=== PATIENT | male | born 1970 | race African-American/Black ===

== ENCOUNTER 2019-06-02 17:18 | Inpatient (IN) ==
[2019-06-02] MEDS ORDERED: ASPIRIN PO ONE (17:36)
--- NOTE | 2019-06-02 17:43 | PROVIDER DOCUMENTATION ---
HPI-Chest Pain - General Chief Complaint: Chest Pain Stated Complaint: SOB/CHEST PAINS Time Seen by Provider: 06/02/19 17:41 Source: patient Allergies/Adverse Reactions: Patient Allergies Allergy/AdvReac Type Severity Reaction Status Date / Time Iodinated Contrast Media Allergy Severe ANAPHYLAXIS Verified 12/25/15 08:23 Home Medications: Home Medication List Medication Instructions Recorded Confirmed Last Taken Type Oxycodone HCl/Acetaminophen 1 each PO PRN PRN 09/22/18 09/22/18 09/22/18 History [Oxycodone-Acetaminophen 10-325] Albuterol Sulfate Inhaler 2 puff INH Q6H PRN PRN #1 inhaler 01/28/19 Unknown Rx [Ventolin Hfa] Benzonatate 200 mg PO TID #30 cap 01/28/19 Unknown Rx Prednisone 50 mg PO DAILY #5 tab 01/28/19 Unknown Rx - History of Present Illness-CP Nature of Presenting Problem: Patient is a 48 year old black male with history of abdominal hernia complaining of increasing shortness of breath, orthopnea,productive yellow cough, and substernal chest pain for past 1 week. Currently without chest pain. Denies history of CAD, fever, or blood clots. Location: reports: substernal Chest Pain Radiation: reports: no radiation Quality of Pain: reports: aching Onset/Duration: gradual Timing: gone now, intermittent Context/Activities at Onset: reports: light activity Similar Symptoms Previously?: No Recently Seen Here or By Another Healthcare Provider: No Review of Systems - Adult - REVIEW OF SYSTEMS - ADULT Constitutional: denies: chills, fever Eyes: reports: no symptoms reported Ears, Nose, Mouth & Throat: reports: no symptoms reported Cardiovascular: reports: chest pain, orthopnea Respiratory: reports: see HPI, cough, shortness of breath Gastrointestinal: reports: see HPI, other (chronic abdominal wall hernia) Musculoskeletal: reports: no symptoms reported Integumentary: reports: no symptoms reported Neurological: reports: no symptoms reported Psychiatric: reports: no symptoms reported Endocrine: reports: no symptoms reported Hematologic/Lymphatic: reports: no symptoms reported Allergic/Immunologic: reports: no symptoms reported All Other Systems: Reviewed and Negative Past History - Adult - PAST MEDICAL HISTORY-ADULT Review of Records: reports: Old Records Reviewed, Nursing Assessment Review, Medications Reviewed, Social history reviewed & non-contributory. Major Childhood Illnesses: reports: denies history Cardiovascular: reports: denies history Respiratory: reports: denies history Gastrointestinal: reports: denies history Genitourinary: reports: denies history Musculoskeletal: reports: denies history Neurological: reports: denies history Endocrine/Immune: reports: denies history Other Conditions: reports: denies history - PRIOR SURGERIES/PROCEDURES Surgical/Procedure History: reports: hernia repair - IMMUNIZATION STATUS Childhood Immunizations: See Nurse Assessment Flu Vaccine: See Nurse Assessment - FAMILY HISTORY Family History: reviewed, not pertinent - SOCIAL HISTORY Smoking: quit greater than 1 year Substance Use: denies Alcohol Use Frequency: occasionally Living Situation: family Physical Exam-General - PHYSICAL EXAM-ADULT Initial Vital Signs Reviewed: Yes - CONSTITUTIONAL General Appearance: alert, obese, other (nondiaphoretic) - EYES Eyes: other (c) - HEAD, EARS, NOSE, MOUTH & THROAT HENMT: normocephalic/atraumatic, moist mucous membranes - NECK Neck: non-tender, full range of motion, supple - RESPIRATORY Respiratory: no respiratory distress, no accessory muscle use, decreased breath sounds, rales - CARDIOVASCULAR Cardiovascular: regular rate, rhythm - GASTROINTESTINAL (ABDOMEN) Abdominal Exam: normal bowel sounds, non tender, soft - LYMPHATIC Lymphatic: no adenopathy - MUSCULOSKELETAL Back Exam: normal inspection, no CVA tenderness Extremity: normal range of motion, non-tender Peripheral Pulses: radial (R): 2+, radial (L): 2+ - SKIN Integumentary: normal color, normal turgor - NEUROLOGIC Neurologic: grossly normal, no motor/sensory deficits - PSYCHIATRIC Psych/Mental Status: anxious - HEART Score HEART Score: History: Slightly Suspicious HEART Score: ECG: Normal HEART Score: Age: 45-65 Years HEART Score: Risk Factors for Atherosclerotic Disease: > or = 3 Risk Factors or History of Atherosclerotic Disease HEART Score: Troponin: < or = Normal Limit Total HEART Score:: 3 Progress - PLAN OF CARE/RESULTS Progress/Plan/Lab Results: Vital Signs - 8 hr 06/02/19 17:24 06/02/19 18:42 06/02/19 19:32 Temperature 98 F Pulse Rate 91 H 86 93 H Respiratory Rate 18 17 17 Blood Pressure 138/88 139/99 129/93 O2 Sat by Pulse Oximetry 94 L 91 L 93 L Laboratory Results - last 24 hr 06/02/19 06/02/19 06/02/19 17:37 17:37 17:37 WBC 5.63 RBC 5.19 Hgb 13.8 L Hct 42.8 MCV 82.5 MCH 26.6 L MCHC 32.2 L RDW Std Deviation 14.7 H Plt Count 295 MPV 9.5 Immature Gran % (Auto) 0.2 Neut % (Auto) 61.8 Lymph % (Auto) 24.9 [place] % (Auto) 10.1 H Eos % (Auto) 2.5 Baso % (Auto) 0.5 Immature Gran # (Auto) 0.01 Neut # (Auto) 3.48 Lymph # (Auto) 1.40 [place] # (Auto) 0.57 Eos # (Auto) 0.14 Baso # (Auto) 0.03 D-Dimer, Quantitative Sodium Potassium Chloride Carbon Dioxide Anion Gap BUN Creatinine Estimated GFR/1.73 m2 BUN/Creatinine Ratio Glucose Calculated Osmolality Calcium Total Bilirubin AST ALT Alkaline Phosphatase Creatine Kinase 149 Troponin T < 0.010 Jjh-[id number]-[id number] Pept Total Protein Albumin Globulin Albumin/Globulin Ratio 06/02/19 06/02/19 06/02/19 17:37 17:37 17:47 WBC RBC Hgb Hct MCV MCH MCHC RDW Std Deviation Plt Count MPV Immature Gran % (Auto) Neut % (Auto) Lymph % (Auto) [place] % (Auto) Eos % (Auto) Baso % (Auto) Immature Gran # (Auto) Neut # (Auto) Lymph # (Auto) [place] # (Auto) Eos # (Auto) Baso # (Auto) D-Dimer, Quantitative 0.86 H Sodium 141 Potassium 4.4 Chloride 103 Carbon Dioxide 27 Anion Gap 11 BUN 8 Creatinine 0.8 Estimated GFR/1.73 m2 > 60 BUN/Creatinine Ratio 10 Glucose 109 H Calculated Osmolality 280 Calcium 8.7 L Total Bilirubin 0.60 AST 11 ALT 12 Alkaline Phosphatase 57 Creatine Kinase Troponin T Xfg-L-Vnavfekpezd Pept 659 H Total Protein 6.5 Albumin 3.8 Globulin 3.0 Albumin/Globulin Ratio 1.0 Orders Category Date Time Status CHEST-2 VIEWS [RAD] Stat Exams 06/02/19 17:31 Completed BNP [PRO B-NATRIURETIC PEPTIDE] Stat Lab 06/02/19 17:47 Completed CBC WITH DIFF [HEME] Stat Lab 06/02/19 17:37 Completed CK PROFILE [SP CHEM] Stat Lab 06/02/19 17:37 Completed COMPREHENSIVE METABOLIC PANEL [CHEM] Stat Lab 06/02/19 17:37 Completed D-DIMER [COAG] Stat Lab 06/02/19 17:37 Completed TROPONIN T Stat Lab 06/02/19 17:37 Completed Aspirin Med 06/02/19 17:50 Discontinued 325 mg .ROUTE .STK-MED ONE Aspirin Med 06/02/19 17:36 Discontinued 325 mg PO NOW ONE Diphenhydramine [Benadryl] Med 06/02/19 19:08 Discontinued 25 mg IV NOW ONE Enoxaparin 1 mg/kg [Lovenox 1 mg/kg] Med 06/02/19 19:42 Discontinued 1 each SUBQ NOW ONE Furosemide [Lasix] Med 06/02/19 18:38 Discontinued 60 mg IV NOW ONE Methylprednisolone Sod Succ [Solu-Medrol] Med 06/02/19 19:09 Discontinued 125 mg IV NOW ONE Nitroglycerin Med 06/02/19 19:45 Discontinued 0.5 inch TOP NOW ONE EKG [EKG] Stat Ther 06/02/19 17:31 Draft patient now reports that he had anaphylactic reaction to contrast dye. CTA pulmonary canceled. will admit and order VQ scan paged Dr. Joseph, hospitalist, at 1945 Result Diagrams: 06/02/19 17:37 06/02/19 17:37 - CONSULTS/PCP/HOSPITALIST Notification #1 *Consult/PCP/Hospitalist*: Dr. Joseph hospitalist Time Discussed: 20:25 Consult Disposition: Admit Departure - Departure Date of Disposition Decision: 06/02/19 Time of Disposition Decision: 20:31 DIAGNOSIS: D-dimer, elevated CHF (congestive heart failure) Qualifiers: Heart failure type: unspecified Heart failure chronicity: unspecified Qualified Code(s): I50.9 - Heart failure, unspecified Disposition: ADMITTED INPATIENT 09 Certified Medical Emergency: Emergent Condition: Stable Referrals and Follow-Ups: Nazanin Dial MD [Primary Care Provider] - - Critical Care Note This patient required my direct & personal management of CC.: No Attestation - Physician/ NORA Attestation Patient care was provided by Advanced Practice Provider:: No The physician spent face to face time with patient:: Yes Advanced Practice Provider documentation review:: Supervising physician onsite and consulted in the evaluation and care of this patient. The physician did have a face to face encounter with the patient.
[2019-06-02] MEDS ORDERED: ASPIRIN ONE (17:50)
[2019-06-02 17:59] LABS: BASO# 0.03 X1000 (0.0-0.2); BASO% 0.5 % (0.0-0.8); EOS# 0.14 X1000 (0.0-0.7); EOS% 2.5 % (0.0-10.0); HEMATOCRIT 42.8 % (42.0-52.0); HEMOGLOBIN 13.8 g/dL (14.0-18.0); IMM GRAN# 0.01 X1000 (0.0-0.04); IMM GRAN% 0.2 % (0.0-0.5); LYMPH% 24.9 % (20.5-51.1); MCH 26.6 PG (27-31); MCHC 32.2 g/dL (33-37); MCV 82.5 FL (81-99); MONO# 0.57 X1000 (0.11-0.59); MONO% 10.1 % (1.7-9.3); MPV 9.5 FL (7.4-10.4); NEUT# 3.48 X1000 (1.4-6.5); NEUT% 61.8 % (42.2-75.2); PLT 295 X1000 (130-400); RBC 5.19 XMIL (4.7-6.1); RDW 14.7 % (11.5-14.5); WBC 5.63 X1000 (4.8-10.8)
[2019-06-02 18:14] LABS: AGAP 11; ALBUMIN 3.8 g/dL (3.5-5.0); ALKALINE PHOSPHATASE 57 U/L (32-122); BUN 8 mg/dL (8-22); CALCIUM 8.7 mg/dL (8.8-10.2); CHLORIDE 103 mmol/L (98-107); COSMO 280; CREATININE 0.8 mg/dL (0.7-1.2); ESTIMATED GFR > 60; GLUCOSE 109 mg/dL (70-104); GOT 11 U/L (10-34); GPT 12 U/L (10-44); POTASSIUM 4.4 mmol/L (3.5-5.1); SODIUM 141 mmol/L (136-145); TCO2 27 mmol/L (25-35); TOTAL PROTEIN 6.5 g/dL (6.3-8.3)
--- NOTE | 2019-06-02 18:37 | Diag Imaging Result Doc PS360 ---
EXAM: CHEST-2 VIEWS INDICATION: chest pain TECHNIQUE: 2 views COMPARISON: 01/28/2019 FINDINGS: There is a stable calcified granuloma at the periphery of the right upper lung zone. There is evidence of pulmonary venous congestion and interstitial edema throughout both lungs. There is no discrete pleural fluid collection or pneumothorax. There is stable cardiomegaly. IMPRESSION: Cardiomegaly with pulmonary venous congestion and interstitial edema. Electronically signed by Magdi Garcia 06/02/2019 6:35 PM
[2019-06-02] MEDS ORDERED: LASIX IV ONE (18:38)
--- NOTE | 2019-06-02 19:05 | EKG Report ---
Test Performed on : 06/02/2019 5:28:19 PM Test Reason : chest pain Blood Pressure : / mmHG Vent. Rate : 098 BPM Atrial Rate : 098 BPM P-R Int : 140 ms QRS Dur : 096 ms QT Int : 382 ms P-R-T Axes : 055 -02 067 degrees QTc Int : 487 ms Sinus rhythm. with occasional premature ventricular complexes. Possible Left atrial enlargement Prolonged QT Abnormal ECG No previous ECGs available Unconfirmed Result
[2019-06-02] MEDS ORDERED: BENADRYL IV ONE (19:08)
[2019-06-02] MEDS ORDERED: SOLU-MEDROL IV ONE (19:09)
[2019-06-02] MEDS ORDERED: LOVENOX 1 MG/KG SUBQ ONE (19:42)
[2019-06-02] MEDS ORDERED: NITROGLYCERIN TOP ONE (19:45)
[2019-06-02] MEDS ORDERED: LOVENOX ONE (20:42)
[2019-06-03] MEDS: LASIX IV SCH ×2 (05:56→18:12)
--- NOTE | 2019-06-03 14:41 | ECHO REPORT ---
ORDER DATE: 06/02/2019 INDICATION: CHF. FINDINGS: 1. The right atrium does appear to be enlarged. 2. There is mild tricuspid regurgitation. RV systolic pressure of 39. 3. Normal RV size and systolic function. 4. No significant pulmonic insufficiency. 5. Severe left atrial enlargement with a volume index of 73. 6. No mitral valve prolapse. Moderate mitral regurgitation. No evidence of mitral stenosis. 7. Dilated left ventricle with an end-diastolic dimension of 7.6. Mild left ventricular hypertrophy with a posterior and interventricular septal wall thickness 1.1 and 1.3 cm respectively. Reduced LV systolic function with an estimated EF of 35%. Global hypokinesis. 8. Aortic valve opens well. It is trileaflet. Trace insufficiency. No stenosis. 9. Aorta appears somewhat dilated with a dimension of 4.3 cm at the root. 10. No pericardial effusion identified. cc: Jair Villalpando MD
--- NOTE | 2019-06-03 16:01 | CARDIOLOGY CONSULTATION ---
DATE: 06/02/2019 CHIEF COMPLAINT ON PRESENTATION: Shortness of breath. HISTORY OF PRESENT ILLNESS: Mr. Pfeiffer reports for the last week or so he has been increasingly short of breath with orthopnea. He denies any exertional chest pain. He is not on any medications as he has not had any medical issues other than some recurrent abdominal hernia issues. PAST MEDICAL HISTORY: Significant for abdominal hernias. He reports no history of diabetes or hypertension. SOCIAL HISTORY: He does smoke. No alcohol. FAMILY HISTORY: Significant for hypertension. Father also apparently had some congestive heart failure issues. REVIEW OF SYSTEMS: A 10 system review of systems is negative except for those things mentioned in HPI. PHYSICAL EXAMINATION: Vital Signs: He is afebrile. Heart rate 90, blood pressure 120/68. His presenting blood pressure was 138/88. His I's and O's are inaccurate due to an number of voids not measured. General: He is in no acute distress. HEENT: Oropharynx is moist. Normal dentition. His eye examination shows pink conjunctivae and white sclerae. Neck: No obvious thyromegaly or thyroid tenderness. Cardiovascular: He sounds to be in a regular rate and rhythm. He has no obvious murmurs. He has no S3. He has no lower extremity edema. Chest: Clear bilaterally. He has no increased work of breathing. Abdomen: Soft, nontender. He has no obvious organomegaly. Skin: Warm and dry throughout without any rashes. Neurological: He is moving all extremities well. He has no lateralizing deficits. PERTINENT DATA: His chest x-ray shows cardiomegaly with evidence for pulmonary vascular congestion. His EKG reviewed by me shows sinus rhythm. He has a PVC identified. His white count is 5.6. His hematocrit is 42. His platelet count is 295,000. His D-dimer is 0.86. His sodium is 141, potassium 4.4, BUN 8, creatinine 0.8. Cardiac enzymes are negative. His proBNP is 659. ASSESSMENT: Mr. Pfeiffer presented with complaints of shortness of breath. PLAN: His echocardiogram demonstrates a reduced ejection fraction of 35% with a dilated left ventricle. We will plan on myocardial perfusion imaging in the morning. The patient is currently on IV Lasix. I will initiate him on a low dose of ARB and some Toprol. Further recommendations to follow. We will ensure he has a TSH ordered as well. cc: Jair Villalpando MD
[2019-06-03] MEDS: ROCEPHIN 1 GM in NS 50 ML IV SCH (16:38)
--- NOTE | 2019-06-03 16:56 | HISTORY AND PHYSICAL ---
CHIEF COMPLAINT: Shortness of breath. HISTORY OF PRESENT ILLNESS: This is a 48-year-old male with unremarkable past medical history who presented to emergency department complaining of progressive shortness of breath that started approximately 7 to 10 days ago. He reports that he is not able to lay down in bed for sleeping orthopnea also he was having some yellowish sputum production. Because of this increasing shortness of breath he decided to come to emergency department. He denies any fever or chills as well. When asked if he report feeling also some substernal chest pain as well on and off mostly when he is resting. Upon my examination he is not on any chest pain. He denies any history coronary artery disease or any blood clots. PAST MEDICAL HISTORY: Unremarkable. PAST SURGICAL HISTORY: Hernia repair . ALLERGIES: Patient is allergic to iodinated contrast media . SOCIAL HISTORY: He is a smoker he smokes 3/4 of pack per day for many years. He drinks alcohol socially not too often and he denies using any illicit drugs. FAMILY HISTORY: Noncontributory . REVIEW OF SYSTEMS: Were reviewed and all symptoms are related to H and P. PHYSICAL EXAMINATION: Temperature 97.4 degrees, heart rate 90, respiratory 18, blood pressure 120/60, O2 saturation 92% on room air . GENERAL: This is a 48-year-old male lying in bed in no acute distress. HEENT: Head is normocephalic, atraumatic. NECK: No JVD noted. No carotid bruits, no lymphadenopathy, no thyromegaly. CARDIOVASCULAR: S1, S2 heard. No murmurs, gallops, or rubs. Regular rate and rhythm. RESPIRATORY: Minimal crackles noted in both pulmonary bases. Patient not using any accessory muscles or having work of breathing. ABDOMEN: Soft, nontender to palpation. Bowel sounds present. No organomegaly. EXTREMITIES: No clubbing, cyanosis, edema. Peripheral pulses present in both legs. NEUROLOGIC: Patient alert, oriented x3, moves 4 extremities. LABORATORY DATA: Normal CBC with dimer that is 0.86, creatinine is normal and troponin has been checked 3 times and that has been negative. X-ray showed cardiomegaly with pulmonary venous congestion and interstitial edema. ASSESSMENT AND PLAN: Congestive heart failure. Suspected that is reason why this patient was admitted to the hospital. The x-ray suggests pulmonary edema, patient has orthopnea, dyspnea on minimal exertion although he was complaining also of some yellowish sputum production so I am going to order a CT of the chest to see there is any pneumonia or any acute bronchitis that we are missing. An echocardiogram has been already ordered and cardiology has been consulted. Currently patient is on 40 mg of Lasix IV q.12 hours, will continue with the same management. Will start antibiotic just in case we are treating acute bronchitis, will continue to monitor this patient closely. cc: Qamar Hodge MD
--- NOTE | 2019-06-03 17:34 | Diag Imaging Result Doc PS360 ---
EXAM: CT THORAX W/O CONTRAST INDICATION: pna TECHNIQUE: This exam was performed using automated exposure control, adjustment of mA or kV according to patient size, and/or use of iterative reconstruction technique. COMPARISON: None. FINDINGS: There is diffuse patchy groundglass opacity throughout both lungs that probably represents pulmonary edema and/or air trapping. There is mild subsegmental atelectasis involving the right middle lobe, lingula, and left lower lobe. There is a small cluster of calcified granulomata in the right upper lobe. There is no pleural fluid collection and no pneumothorax. There is cardiomegaly. There are calcified right hilar lymph nodes indicating prior granulomatous disease. Limited views of the upper abdomen are essentially unremarkable. IMPRESSION: 1.Diffuse patchy groundglass infiltrates bilaterally most consistent with pulmonary edema. 2.Cardiomegaly. Electronically signed by Magdi Garcia 06/03/2019 5:32 PM
[2019-06-04] MEDS: LASIX IV SCH ×2 (06:38→17:02)
[2019-06-04 07:25] LABS: AGAP 10; BUN 18 mg/dL (8-22); CALCIUM 8.9 mg/dL (8.8-10.2); CHLORIDE 102 mmol/L (98-107); COSMO 282; CREATININE 0.9 mg/dL (0.7-1.2); ESTIMATED GFR > 60; GLUCOSE 106 mg/dL (70-104); POTASSIUM 3.9 mmol/L (3.5-5.1); SODIUM 140 mmol/L (136-145); TCO2 28 mmol/L (25-35)
[2019-06-04] MEDS: COZAAR PO SCH ×2 (14:02→15:47)
[2019-06-04] MEDS: TOPROL XL PO SCH ×2 (14:02→15:47)
--- NOTE | 2019-06-04 15:17 | Diag Imaging Result Document ---
PROCEDURE NAME: MYOCARDIAL PERF SCAN, STR/REST - 06/04/2019 INDICATION: CHF. PROCEDURES PERFORMED: 1. Sharan protocol stress. 2. One-day stress rest myocardial perfusion imaging. PROCEDURE IN DETAIL: Mr. Pfeiffer was brought to the nuclear laboratory and had a resting study with injection of 15.5 mCi of technetium-99m sestamibi with usual imaging protocol utilized. He subsequently was brought back and had a Sharan protocol stress and at peak stress was injected with 44.3 mCi of technetium-99m sestamibi with usual imaging protocol utilized. FINDINGS: SHARAN PROTOCOL STRESS RESULTS: 1. Baseline EKG shows sinus rhythm. 2. Patient exercised for a total of 7 minute 7 seconds achieving peak heart rate of 148, this was 85% of age predicted max. He achieved 8.6 METS and mid stage 3 of the Sharan protocol. Exercise capacity was significantly reduced at only 74% of age and sex predicted exercise capacity. 3. Appropriate blood response to exercise. 4. Test was terminated due to fatigue. 5. No anginal complaints occurred during the course of study. 6. No ischemic related EKG changes or significant arrhythmias occurred. PVCs were identified during the course of study. PERFUSION IMAGING RESULTS: 1. No evidence of abnormal extracardiac uptake. 2. TID ratio 0.94. 3. Perfusion imaging shows a fixed defect located in the inferior apical, mid inferior and basal inferior segments. This defect I believe looks most like soft tissue attenuation artifact considering that there is severe global hypokinesis and no obvious segmental abnormality that is significantly worse in that territory. In addition, the defect seems to improve somewhat from rest to stress imaging. 4. Significantly reduced ejection fraction. ECT toolbox demonstrates an EF of 32% with a severely enlarged left ventricle with an end-diastolic volume 425, end systolic volume 291. Severe global hypokinesis. Myometric demonstrates an EF of 17%, again severe global hypokinesis with a dilated left ventricle. cc: Jair Villalpando MD
[2019-06-04 15:45] LABS: MAGNESIUM 1.8 mg/dL (1.5-2.7); POTASSIUM 3.8 mmol/L (3.5-5.1)
[2019-06-04] MEDS: ROCEPHIN 1 GM in NS 50 ML IV SCH (15:47)
--- NOTE | 2019-06-04 15:49 | EKG Report ---
Test Performed on : 06/04/2019 2:35:31 PM Test Reason : 5 beat run vtach Blood Pressure : / mmHG Vent. Rate : 079 BPM Atrial Rate : 079 BPM P-R Int : 148 ms QRS Dur : 102 ms QT Int : 412 ms P-R-T Axes : 060 023 067 degrees QTc Int : 472 ms Normal sinus rhythm. Biatrial enlargement Left ventricular hypertrophy Nonspecific T wave abnormality Prolonged QT Abnormal ECG When compared with ECG of 02-JUN-2019 17:28, (Unconfirmed) premature ventricular complexes. are no longer present Nonspecific T wave abnormality, worse in Lateral leads Confirmed by Marck Pat MD ([id number]) on 06/06/2019 3:12:52 PM
[2019-06-04 16:05] VITALS: BP 126/91
--- NOTE | 2019-06-05 01:56 | DISCHARGE SUMMARY ---
ADMISSION DATE: 06/02/2019 DISCHARGE DATE: 06/04/2019 DISCHARGE DIAGNOSES: 1. Chest pain. 2. CHF -ejection fraction of 35%. CONSULTATIONS: Cardiology. PROCEDURES: Cardiolite stress test. BRIEF HOSPITAL COURSE: The patient is a 48-year-old male who presented to the hospital with a 7- day history of shortness of breath, fatigue. Unfortunately, he continues to smoke. Discussed with him that he is got to stop smoking. Discussed different ways to stop as well as the perils of not stopping. He had an echo which demonstrated EF of 35%. He was placed on Lasix, noted that his symptoms have greatly improved. He was scheduled for a stress test today, which he underwent. We do not have final results of stress test. DISPOSITION: Patient decided that he was going to leave the hospital regardless. He did not stay for the final results of his stress test. As noted above, however, we had ordered discussed with him treatment, medications, and stopping smoking and does. cc: Edson Trejo MD MTDD
== END 2019-06-04 19:09 | disposition left against medical advice (07) | DRG 293 ==
LOC: P.ED 17:18 → SUATTDRO 21:21 → P.MEDSURG 21:21
PROVIDERS: ATTEND Family Medicine

== ENCOUNTER 2019-11-26 13:52 | Observation (INO) ==
[2019-11-26] MEDS ORDERED: NS 1,000 ML ONE (14:14)
[2019-11-26] MEDS ORDERED: NS 1,000 ML IV ONE ×3 (14:22→15:56)
[2019-11-26 15:01] LABS: BASO# 0.03 X1000 (0.0-0.2); BASO% 0.5 % (0.0-0.8); EOS# 0.44 X1000 (0.0-0.7); EOS% 6.8 % (0.0-10.0); HEMOGLOBIN 14.2 g/dL (14.0-18.0); IMM GRAN# 0.02 X1000 (0.0-0.04); IMM GRAN% 0.3 % (0.0-0.5); LYMPH# 1.29 X1000 (1.2-3.4); LYMPH% 19.9 % (20.5-51.1); MCH 26.2 PG (27-31); MCHC 32.3 g/dL (33-37); MCV 81.3 FL (81-99); MONO# 0.66 X1000 (0.11-0.59); MONO% 10.2 % (1.7-9.3); MPV 10.6 FL (7.4-10.4); NEUT# 4.04 X1000 (1.4-6.5); NEUT% 62.3 % (42.2-75.2); PLT 271 X1000 (130-400); RBC 5.41 XMIL (4.7-6.1); RDW 14.9 % (11.5-14.5); WBC 6.48 X1000 (4.8-10.8)
--- NOTE | 2019-11-26 15:02 | Diag Imaging Result Doc PS360 ---
EXAM: CHEST-1 VIEW - 11/26/2019 HISTORY: hypotension TECHNIQUE: One view chest COMPARISON: 11/19/2019 FINDINGS: There is stable cardiomegaly. There is stable right upper lobe granuloma from old granulomatous disease. There is decreased prominence of vascular markings compared to prior. There is no consolidation, pleural effusion, or pneumothorax identified. IMPRESSION: Stable cardiomegaly. Decrease in vascular congestion compared to prior. Electronically signed by [employer] 11/26/2019 3:00 PM
[2019-11-26 15:04] LABS: INR 1.09; PROTIME 14.7 Seconds (11.0-16.0)
[2019-11-26 15:05] LABS: PTT 29.4 Seconds (22.3-41.8)
[2019-11-26 15:12] LABS: AGAP 11; ALKALINE PHOSPHATASE 64 U/L (32-122); BUN 22 mg/dL (8-22); CALCIUM 9.4 mg/dL (8.8-10.2); CHLORIDE 102 mmol/L (98-107); CK PROFILE 132 U/L (24-204); COSMO 284; CREATININE 1.1 mg/dL (0.7-1.2); ESTIMATED GFR > 60; GLUCOSE 117 mg/dL (70-104); GOT 10 U/L (10-34); GPT 11 U/L (10-44); POTASSIUM 3.9 mmol/L (3.5-5.1); SODIUM 140 mmol/L (136-145); TCO2 27 mmol/L (25-35)
--- NOTE | 2019-11-26 16:29 | PROVIDER DOCUMENTATION ---
This chart was entered by Radha Rothman Scribe, acting as scribe for Bruna Albarran MD. HPI-General Adult - General Chief Complaint: SEPSIS ALERT Stated Complaint: LOW BP Time Seen by Provider: 11/26/19 14:07 Source: patient, family () Allergies/Adverse Reactions: Patient Allergies Allergy/AdvReac Type Severity Reaction Status Date / Time Iodinated Contrast Media Allergy Severe ANAPHYLAXIS Verified 07/10/19 11:56 Home Medications: Home Medication List Medication Instructions Recorded Confirmed Last Taken Type Carvedilol 1 tab PO DAILY 11/26/19 11/26/19 Unknown History LISINOpril [Prinivil] 1 tab PO DAILY 11/26/19 11/26/19 Unknown History Spironolactone 1 tab PO DAILY 11/26/19 11/26/19 Unknown History Torsemide [Demadex] 1 tab PO BID 11/26/19 11/26/19 Unknown History - History of Present Illness -Gen Adult Nature of Presenting Problems: Patient is a 49 year old male who presents with dizziness and weakness. States symptoms have been present for 1 week. Reports having a near syncopal episode around lunch today. Denies chest pain, palpitations and shortness of breath. States being seen by his PCP last week and having his Carvedilol and Lisinopril increased then having Torsemide and Spironolactone added. Patient's states she checked patient's BP prior to arrival and patient's systolic was 70. Location of Pain/Injury: reports: none Quality of Pain: reports: none Severity: reports: mild Onset/Duration: reports: 1 week ago Timing: reports: still present, getting worse Context/Activities at Onset: reports: light activity Associated Symptoms: reports: dizziness, weakness Similar Symptoms Previously?: Yes Recently seen or treated by another doctor?: Yes Review of Systems - Adult - REVIEW OF SYSTEMS - ADULT Constitutional: reports: no symptoms reported Eyes: reports: no symptoms reported Ears, Nose, Mouth & Throat: reports: no symptoms reported Cardiovascular: reports: no symptoms reported Respiratory: reports: no symptoms reported Gastrointestinal: reports: no symptoms reported Genitourinary: reports: no symptoms reported Musculoskeletal: reports: see HPI, muscle weakness Integumentary: reports: no symptoms reported Neurological: reports: see HPI, dizziness/vertigo (dizziness). denies: syncope Psychiatric: reports: no symptoms reported Endocrine: reports: no symptoms reported Hematologic/Lymphatic: reports: no symptoms reported Allergic/Immunologic: reports: no symptoms reported All Other Systems: Reviewed and Negative Past History - Adult - PAST MEDICAL HISTORY-ADULT Review of Records: reports: Old Records Reviewed, Nursing Assessment Review, Medications Reviewed, Social history reviewed & non-contributory. Major Childhood Illnesses: reports: denies history Cardiovascular: reports: CHF, palpitations Respiratory: reports: sleep apnea Gastrointestinal: reports: denies history Obstetrical/Gynecological: reports: denies history Genitourinary: reports: denies history Musculoskeletal: reports: denies history Neurological: reports: denies history Psychiatric: reports: denies history Endocrine/Immune: reports: denies history Other Conditions: reports: denies history - PRIOR SURGERIES/PROCEDURES Surgical/Procedure History: reports: reviewed, not pertinent, hernia repair, bowel surgery - IMMUNIZATION STATUS Childhood Immunizations: See Nurse Assessment Flu Vaccine: See Nurse Assessment - FAMILY HISTORY Family History: reviewed, not pertinent - SOCIAL HISTORY Smoking: cigarettes (former) Substance Use: denies Living Situation: family Physical Exam-General - PHYSICAL EXAM-ADULT Initial Vital Signs Reviewed: Yes - CONSTITUTIONAL General Appearance: alert, no apparent distress - HEAD, EARS, NOSE, MOUTH & THROAT HENMT: normocephalic/atraumatic, moist mucous membranes - RESPIRATORY Respiratory: chest non-tender, lungs clear, normal breath sounds - CARDIOVASCULAR Cardiovascular: regular rate, rhythm, systolic murmur (S3) - GASTROINTESTINAL (ABDOMEN) Abdominal Exam: normal bowel sounds, non tender, soft - MUSCULOSKELETAL Extremity: non-tender, normal inspection - SKIN Integumentary: normal color, normal turgor, warm/dry - NEUROLOGIC Neurologic: grossly normal - PSYCHIATRIC Psych/Mental Status: normal mood/affect, normal thought content, normal thought process, oriented x 3 Progress - PLAN OF CARE/RESULTS Progress/Plan/Lab Results: Vital Signs - 8 hr 11/26/19 13:54 Temperature 98 F Pulse Rate 69 Respiratory Rate 18 Blood Pressure 78/48 O2 Sat by Pulse Oximetry 92 L Orders Category Date Time Status Cardiac Monitoring NOW Care 11/26/19 14:21 Active IV Insertion NOW Care 11/26/19 14:21 Active NEWS Score >or=5:Order NEWS Bundle S.O. NOW Care 11/26/19 14:08 Active Notify Provider of NEWS Score NOW Care 11/26/19 14:21 Active CHEST-1 VIEW [RAD] Stat Exams 11/26/19 14:21 Ordered BLOOD CULTURE [BLDCUL] Stat Lab 11/26/19 14:21 Uncollected CBC WITH DIFF [HEME] Stat Lab 11/26/19 14:21 Uncollected CK PROFILE [SP CHEM] Stat Lab 11/26/19 14:21 Uncollected COMPREHENSIVE METABOLIC PANEL [CHEM] Stat Lab 11/26/19 14:21 Uncollected LACTATE, PLASMA [CHEM] Q3H Lab 11/26/19 14:30 Uncollected LACTATE, PLASMA [CHEM] Q3H Lab 11/26/19 17:30 Uncollected LACTATE, PLASMA [CHEM] Q3H Lab 11/26/19 20:30 Uncollected PRO B-NATRIURETIC PEPTIDE Stat Lab 11/26/19 14:20 Uncollected PROTIME WITH INR [COAG] Stat Lab 11/26/19 14:21 Uncollected PTT [COAG] Stat Lab 11/26/19 14:21 Uncollected TROPONIN T HIGH SENSITIVITY Stat Lab 11/26/19 14:20 Uncollected TROPONIN T HIGH SENSITIVITY Stat Lab 11/26/19 14:21 Uncollected URINALYSIS W/POSS RFLX CULT [URINALYSIS] Stat Lab 11/26/19 14:21 Uncollected 0.9% Sodium Chloride Inj [Ns] 1,000 ml Med 11/26/19 14:14 Discontinued .ROUTE As directed O2 Per Protocol Stat Oth 11/26/19 14:21 Active Result Diagrams: 11/26/19 14:22 11/26/19 14:22 - REASSESSMENT Reassessment #1 Time Reassessed: 16:28 Status: improving (BP improved minimally. SBP only improved to 87 mmHg after 2L IVF resuscitation.) - XRAY 1 XRAY Study: Chest Impression: See EMR Report ( EXAM: CHEST-1 VIEW - 11/26/2019 HISTORY: hyp otension TECHNIQUE: One view chest COMPARISON: 11/19/2019 FINDINGS: There is stable cardiomegaly. There is stable right upper lobe granuloma from old granulomatous disease. There is decreased prominence of vascular markings compared to prior. There is no consolidation, pleural effusion, or pneumothorax identified. IMPRESSION: Stable cardiomegaly. Decrease in vascular congestion compared to prior. Electronically signed by Jacob Ho 11/26/2019 3:00 PM 11/26/19 1500 Interpreting Physician: Jacob Ho MD Dictated Date/Time: 11/26/19 1458 cc: Bruna Albarran MD; None,PCP) - CONSULTS/PCP/HOSPITALIST Notification #1 *Consult/PCP/Hospitalist*: Dr. Trejo Time Discussed: 16:29 Consult Disposition: Admit Departure - Departure Date of Disposition Decision: 11/26/19 Time of Disposition Decision: 16:29 DIAGNOSIS: Hypotension Qualifiers: Hypotension type: hypotension due to drug Qualified Code(s): I95.2 - Hypotension due to drugs Disposition: ADMITTED INPATIENT 09 Certified Medical Emergency: Emergent Condition: Stable Referrals and Follow-Ups: None,PCP [Primary Care Provider] - - Critical Care Note This patient required my direct & personal management of CC.: No Attestation - Physician/ NORA Attestation Patient care was provided by Advanced Practice Provider:: No The physician spent face to face time with patient:: Yes Advanced Practice Provider documentation review:: Supervising physician onsite and consulted in the evaluation and care of this patient. The physician did have a face to face encounter with the patient. This chart was documented by the indicated scribe, (Radha Rothman, Ghazal) and accurately reflects the services I performed and decisions made by me, Bruna Albarran MD, as attested by the provider's signature.
--- NOTE | 2019-11-26 18:07 | HISTORY AND PHYSICAL ---
PRIMARY CARE PHYSICIAN: None. HEART DOCTOR: Dr. Galvan. CHIEF COMPLAINT: Dizziness, weakness, and a low blood pressure for about a week that has progressively worsened. HISTORY OF PRESENTING ILLNESS: This is a 49-year-old male who presents to [facility] ER with complaints of dizziness, weakness, and a low blood pressure for about a week that has progressively worsened. States he had a near syncopal episode around lunch today. 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 When he arrived to the emergency room, his blood pressure was noted to be 78/48 saturating 92% on room air. He has been given 3 L total of normal saline 1000 mL each and blood pressure is now up to 102/67, so he will be admitted for further evaluation and treatment. PAST MEDICAL HISTORY: Systolic congestive heart failure with an ejection fraction of 35% in June 2019, sleep apnea. PAST SURGICAL HISTORY: Hernia, colon resection, umbilical hernia, and angioplasty. FAMILY HISTORY: Reviewed and noncontributory. SOCIAL HISTORY: Currently lives with family. Smokes 1 to 2 cigarettes occasionally and denies any alcohol or illicit drug use. ALLERGIES: Iodinated contrast media. HOME MEDICATIONS: Will all be held at this time, but they are as follows: Coreg 25 mg p.o. daily, Prinivil 20 mg p.o. daily spironolactone 25 mg p.o. daily. Torsemide 20 mg p.o. b.i.d. LABORATORY DATA: Shows a white blood cell count of 6.48, hemoglobin 14.2, hematocrit 44, platelets 271,000. PT and INR 14.7 and 1.09. Sodium of 140, potassium 3.9, chloride 102, CO2 27, BUN of 22, creatinine 1.1, glucose 117. Troponin T high sensitivity of 18. ProBNP of 355. Plasma lactate 1.1. Chest x-ray shows stable cardiomegaly and decrease in vascular congestion compared to prior. REVIEW OF SYSTEMS: He denied any fever, chills, blurred vision. He did have dizziness, weakness, and a near syncopal episode, low blood pressure. Denied chest pain, coughing, shortness of breath, abdominal pain, constipation, diarrhea, or burning or hurting with urination. PHYSICAL EXAMINATION: VITAL SIGNS: On arrival, he had a temperature of 98 degrees, pulse 69, respirations 18, blood pressure was 78/48, saturating 92% on room air. Currently blood pressure is up to 102/67 after 3 L of normal saline, saturating 96% on 3 L via nasal cannula. GENERAL: This is a 49-year-old male who is lying in the bed and answers questions appropriately. HEENT: Normocephalic, atraumatic. Normal ENT inspection. Oropharynx and nares are clear. EYES: Pupils are equal, round, reactive to light and accommodation. Extraocular movements are intact. NECK: Normal inspection. Normal range of motion. LUNGS: Clear to auscultation bilaterally with equal lung expansion and chest wall movement. HEART: Regular rate and rhythm. No murmurs, rubs, or gallops. ABDOMEN: Soft, nontender, nondistended. Bowel sounds are present x4 quadrants. MUSCULOSKELETAL: He has 5/5 strength x4 extremities. NEUROLOGICAL: Cranial nerves 2-12 appear grossly intact. ASSESSMENT: 1. Dizziness. 2. Hypotension secondary to blood pressure and diuretic medication. 3. Sleep apnea, history of. 4. Tobacco abuse. PLAN: He will be admitted to the medical unit at [facility], placed on telemetry, O2 per protocol. Healthy heart diet. We are going to give him gentle hydration at 50 mL an hour of normal saline. He has received the 3 L boluses already in the emergency room and blood pressure has improved, so hopefully this gentle hydration will maintain his blood pressure. We will hold all of his home medications at this time. Recheck a CBC, BMP in the a.m. Further orders after seen by attending. Dictated by OLAF Boyce for Edson Trejo MD cc: OLAF Boyce MD
[2019-11-26 19:22] LABS: INFLUENZA A NEGATIVE (NEGATIVE); INFLUENZA B NEGATIVE (NEGATIVE)
[2019-11-26] MEDS ORDERED: TYLENOL PO PRN (20:43)
[2019-11-26] MEDS ORDERED: NS 1,000 ML IV SCH (20:43)
[2019-11-26] MEDS ORDERED: ZOFRAN IV PRN (20:43)
--- NOTE | 2019-11-26 20:46 | HISTORY AND PHYSICAL ---
ADDENDUM: Patient seen and examined by myself. Full note dictated and discussed with nurse practitioner. Patient has a known history of congestive heart failure states his last EF was around 25 to 30 percent he believes. He just recently seen by his overhead distribution engineer. His medications were adjusted. Came into the ER feeling weak, dizzy and lightheaded. Blood pressures were down 78/48. He has had 2 L of fluid boluses and is working on his 3rd currently. Blood pressures are 1 or 2. We are going to admit in the hospital and follow his blood pressures as well as his symptoms. Follow his congestive heart failure. Hold his antihypertensives. We will follow. Discussed with patient that if his EF truly is that low, he should consider Entresto. cc: Edson Trejo MD
[2019-11-26 22:28] LABS: URINE SOURCE CLEAN CATCH
[2019-11-26 22:36] LABS: BILIRUBIN URINE NEGATIVE (NEGATIVE); BLOOD URINE TRACE (NEGATIVE); COLOR YELLOW; GLUCOSE URINE NEGATIVE (NEGATIVE); KETONE URINE NEGATIVE (NEGATIVE); LEUKOCYTES URINE NEGATIVE (NEGATIVE); NITRITE URINE NEGATIVE (NEGATIVE); PROTEIN URINE NEGATIVE (NEGATIVE); TURBIDITY URINE CLEAR (CLEAR); UROBILINOGEN URINE NORMAL (NORMAL)
[2019-11-26 22:38] LABS: UR EPITHELIAL CELLS <10 /HPF (<10); URINE BACTERIA NEGATIVE /HPF; URINE RBC <10 /HPF (<10); URINE WBC <10 /HPF (<10)
[2019-11-27 06:47] LABS: BASO# 0.02 X1000 (0.0-0.2); BASO% 0.3 % (0.0-0.8); EOS# 0.39 X1000 (0.0-0.7); EOS% 5.8 % (0.0-10.0); HEMATOCRIT 41.5 % (42.0-52.0); HEMOGLOBIN 13.2 g/dL (14.0-18.0); IMM GRAN# 0.01 X1000 (0.0-0.04); IMM GRAN% 0.1 % (0.0-0.5); LYMPH# 2.01 X1000 (1.2-3.4); LYMPH% 29.8 % (20.5-51.1); MCH 25.9 PG (27-31); MCHC 31.8 g/dL (33-37); MCV 81.4 FL (81-99); MONO# 0.67 X1000 (0.11-0.59); MONO% 9.9 % (1.7-9.3); NEUT# 3.64 X1000 (1.4-6.5); NEUT% 54.1 % (42.2-75.2); PLT 233 X1000 (130-400); RDW 14.9 % (11.5-14.5); WBC 6.74 X1000 (4.8-10.8)
[2019-11-27 07:18] LABS: AGAP 11; BUN 18 mg/dL (8-22); CHLORIDE 103 mmol/L (98-107); COSMO 277; CREATININE 0.7 mg/dL (0.7-1.2); ESTIMATED GFR > 60; GLUCOSE 96 mg/dL (70-104); POTASSIUM 4.1 mmol/L (3.5-5.1); SODIUM 138 mmol/L (136-145); TCO2 24 mmol/L (25-35)
[2019-11-27] MEDS ORDERED: NS 500 ML IV SCH (13:30)
[2019-11-27] MEDS: ROBITUSSIN-DM PO PRN (21:09)
--- NOTE | 2019-11-27 21:42 | PROGRESS NOTE ---
DATE: 11/27/2019 SUBJECTIVE: Patient notes he is feeling a lot better this morning. He is no longer dizzy, not seeing stars. Denies any fevers, chills. Denies headaches. PHYSICAL EXAMINATION: Vital signs: Temperature 98.2 degrees, pulse 76, respiratory rate 18, BP 107/73. General: Patient is pleasant, awake. He is in no current distress. He is sitting up in no respiratory distress. HEENT: Normocephalic. Neck: Supple. Cardiovascular: Regular rate. Chest: Clear and nonlabored. No crackles. No wheezing. Abdomen: Soft, nondistended. Extremities: Moves all extremities. No edema. Neurologic: No changes. ASSESSMENT: 1. Congestive heart failure, systolic. 2. Hypotension, secondary to medications. 3. Sleep apnea. 4. Chronic tobacco abuse. PLAN: We are going to attempt to get in touch with patient's jewelry finisher, Dr. Galvan, to see what his most recent echocardiogram demonstrated. At this point, we are going to hold his intravenous fluids. We are going to keep him in the hospital and follow his blood pressures. He was on Coreg 25 twice daily, lisinopril 20, as well as torsemide and Aldactone. Currently, he is off all and his blood pressures are still 95 to 105 systolic. Will ask Cardiology for assistance and will follow. cc: Edson Trejo MD
--- NOTE | 2019-11-28 07:22 | Diag Imaging Result Doc PS360 ---
EXAM: CHEST-2 VIEWS - 11/28/2019 HISTORY: hypoxia TECHNIQUE: Chest two views COMPARISON: 11/26/2019 portable chest one view FINDINGS: There is mild cardiomegaly. There are stable right upper lobe granuloma from old granulomatous disease. There is mild prominence of central vascular/infrahilar markings. There is no dense consolidation, gross pulmonary edema, substantial pleural effusion, or pneumothorax identified. IMPRESSION: Mild cardiomegaly. Mild prominence of central vascular/infrahilar markings. Electronically signed by Jacob Ho 11/28/2019 7:20 AM
[2019-11-28] MEDS: ROBITUSSIN-DM PO PRN ×2 (08:13→14:22)
[2019-11-28] MEDS ORDERED: COREG PO SCH (09:00)
[2019-11-28 12:02] VITALS: BP 111/73
--- NOTE | 2019-11-28 21:47 | DISCHARGE SUMMARY ---
ADMISSION DATE: 11/26/2019 DISCHARGE DATE: 11/28/2019 ADMITTING DIAGNOSES: 1. Dizziness. 2. Hypotension secondary to blood pressure and diuretic medication. 3. Sleep apnea. 4. Tobacco abuse. DISCHARGE DIAGNOSES: 1. Congestive heart failure, systolic. 2. Hypotension secondary to medications. 3. Sleep apnea. 4. Chronic tobacco abuse. PROCEDURES AND FINDINGS: A chest x-ray done on 11/26/2019 shows stable cardiomegaly with decrease in vascular congestion. Chest x-ray done on 11/28 shows mild cardiomegaly with mild prominence of vascular infrahilar markings. HOSPITAL COURSE: Mr. Pfeiffer is a 49-year-old male that presented to the ER with complaints of dizziness, weakness and low blood pressure for about a week. They have progressively gotten worse. He stated that he went to see his prison warden 2 weeks prior and they increased his spironolactone and torsemide. Over the past week he had dizziness and weakness with a low blood pressure and a near syncopal episode. He did present to the ER with a blood pressure that was noted to be 78/48, and O2 saturation 92% on room air. He was given a total of 3 L in the ER of normal saline. His blood pressure did increase to 102/67. He was admitted to the medical floor for further treatment. All medications were held. Blood pressure did normalize throughout the hospital stay. We did end up having to give him another 500 mL bolus over several hours. I did speak with the prison warden at [place] and scheduled him an appointment to see a doctor, Fang, with the [facility] for December 05 at 3:45 p.m.. The patient did agree with this appointment. He is being discharged today on half dose Coreg 3.125 mg p.o. q.12 hours. He did receive a dose prior to discharge with last blood pressure being 111/73. DISCHARGE MEDICATIONS: Coreg 3.125 mg p.o. b.i.d. DISCHARGE DIET: Resume healthy heart diet as tolerated. DISCHARGE ACTIVITY: Resume activity as tolerated. DISCHARGE DISPOSITION INSTRUCTIONS: The patient is to discharge home with self care. He is to follow up with his primary care physician in 1 week. He is to follow up with his prison warden, Dr. Headley on December 25 at [facility] at 3:45. For all other questions and concerns, the patient is to notify his blast furnace keeper. Dictated by OLAF Bautista for Edson Trejo MD cc: MD Dr. Fang Yarbrough
--- NOTE | 2019-11-29 05:53 | DISCHARGE SUMMARY ---
ADMISSION DATE: 11/26/2019 DISCHARGE DATE: 11/28/2019 ADDENDUM: Patient was seen and examined by myself. Full note dictated and discussed with nurse practitioner. On discharge, patient is awake, alert. He is much improved. Blood pressure is 114 to 120 systolic. We are going to restart his Coreg but at a much lower dose of 3.125 twice daily. Discussed with him to check his weight daily and if his weight goes up by more than 2 pounds in 2 days that he will need to restart his torsemide. Currently, we are going to leave it off. Discussed he needs to check his blood pressure twice daily and to write those records down. He needs to follow up outpatient within 1 week with Cardiology. Patient voices understanding. cc: Edson Trejo MD
== END 2019-11-28 16:50 | disposition home or self-care (01) ==
LOC: P.ED 13:52 → P.MEDSURG 13:52
PROVIDERS: ATTEND Family Medicine